=== PATIENT | male | born 1990 | race Caucasian/White ===

== ENCOUNTER 2023-06-25 13:43 | Emergency (ER) | payer SELFPAY ==
[~2023-06-25] VITALS: Ht 165.1 cm; Wt 72.6 kg
[2023-06-25 14:02] VITALS: BP 111/78; PULSE 120; RESP 20; TEMP 97.7; O2SAT 96
[2023-06-25 16:15] VITALS: PULSE 100
== END 2023-06-25 16:15 ==
LOC: MED 13:43
DX: Z02.89 Encounter for other administrative examinations (principal); F14.10 Cocaine abuse, uncomplicated
CPT/HCPCS: 99283